=== PATIENT | female | born 1970 | race Caucasian/White ===

== ENCOUNTER 2024-04-01 08:59 | Outpatient (CLI) | payer BC | END 2024-04-01 09:00 | disposition home or self-care (01) | LOC: CSHULT 08:59 | PROVIDERS: ATTEND Internal Medicine Gastroenterology | DX: R10.13 Epigastric pain (principal); Z12.11 Encounter for screening for malignant neoplasm of colon; E03.9 Hypothyroidism, unspecified; K80.20 Calculus of gallbladder without cholecystitis without obstruction; K76.0 Fatty (change of) liver, not elsewhere classified | CPT/HCPCS: 76700 ==